=== PATIENT | female | born 1950 | race African-American/Black ===

== ENCOUNTER 2019-12-06 00:02 | Emergency (ER) | payer MEDICARE ==
[2019-12-06] MEDS ORDERED: Morphine 4 MG/ML VIAL ONE ×2 (00:28→02:25)
[2019-12-06] MEDS ORDERED: diphenhydrAMINE 50 MG/ML VIAL ONE (00:28)
[2019-12-06 00:42] LABS: #Basophils 0.2 thou/uL (0.0-0.2); #Eosinphils 0.1 thou/uL (0.0-0.7); #Lymphocytes 3.9 thou/uL (1.20-3.40); #Monocytes 0.6 thou/uL (0.11-0.59); %Basophils 1.4 % (0.0-1.0); %Eosinophils 0.8 % (0.0-10.0); %Lymphocytes 28.4 % (21.0-51.0); %Monocytes 4.6 % (0.0-10.0); %Neutrophils 64.7 % (42.0-75.0); Mean Corpuscular HGB CONC 33.1 g/dL (32.0-36.0); Mean Corpuscular Hemoglobin 29.4 pg (27.0-31.0); Mean Corpuscular Volume 88.9 fL (78.0-98.0); Mean Platelet Volume 7.7 fL (7.4-10.4); Platelet Count 244 thou/uL (130-400); Red Blood Cell (RBC) Count 4.76 mill/uL (4.20-5.40); White Blood Cell (WBC) Count 13.8 thou/uL (4.8-10.8)
[2019-12-06 00:50] LABS: PTT 28.7 sec (22.9-36.1)
[2019-12-06 00:51] LABS: INR-International Normal Ratio 1.1; Prothrombin Time 13.9 sec (12.0-14.7)
[2019-12-06 01:06] LABS: ALT (SGPT) 16 U/L (8-55); AST (SGOT) 16 U/L (5-34); Albumin 4.1 g/dL (3.4-4.8); Alkaline Phosphatase 69 U/L (40-110); Anion Gap 15 mmol/L (10-20); BUN (Urea Nitrogen) 11 mg/dL (9.8-20.1); Bilirubin, Total Less than 0.2 mg/dL (0.2-1.2); CK (CPK) 141 U/L (29-168); Calc. Creatinine Clearance 0 mL/min (70-130); Calcium 8.8 mg/dL (7.8-10.44); Carbon Dioxide 22 mmol/L (23-31); Chloride 106 mmol/L (98-107); Estimated GFR-MDRD 76; Globulin 2.9 g/dL (2.4-3.5); Glucose 165 mg/dL (80-115); Potassium 3.3 mmol/L (3.5-5.1); Sodium 140 mmol/L (136-145)
[2019-12-06] MEDS ORDERED: Adacel (T-DAP) 0.5 ML SYRINGE ONE (01:14)
[2019-12-06 01:36] LABS: Bacteria/HPF 3+ HPF (None Seen); Bilirubin Negative (Negative); Blood, Urine Trace (Negative); Clarity Clear (Clear); Glucose, Urine (Dipstick) Normal (Negative); Leukocyte Negative Leu/uL (Negative); Nitrite Negative (Negative); Protein, Urine (Dipstick) 20 mg/dL (Neg-Trace); RBC/HPF 0-3 HPF (0-3); Squamous Epithelial 0-3 HPF (0-3); Urobilinogen Normal mg/dL (Less than 2); WBC/HPF 0-3 HPF (0-3)
--- NOTE | 2019-12-08 10:18 | EKG ---
Test Reason : Blood Pressure : / mmHG Vent. Rate : 117 BPM Atrial Rate : 117 BPM P-R Int : 178 ms QRS Dur : 072 ms QT Int : 282 ms P-R-T Axes : 062 003 075 degrees QTc Int : 393 ms Sinus tachycardia Possible Left atrial enlargement Borderline ECG Confirmed by MERI ADAMES ([id number]), editor sound IAN ZABALA ([id number]) on 12/08/2019 10:17:50 AM Referred By: Confirmed By:MERI ADAMES
== END 2019-12-06 03:00 | disposition home or self-care (01) ==
LOC: ERS 00:02
DX: T63.061A Toxic effect of venom of other North and South American snake, accidental (unintentional), initial encounter (principal); E11.9 Type 2 diabetes mellitus without complications; Z23 Encounter for immunization; Z79.899 Other long term (current) drug therapy
CPT/HCPCS: 36415; 80053; 81003; 81015; 82550; 85025; 85384; 85610; 85730; 86850; 86900; 86901; 90471; 90715; 93005; 96361; 96374; 96375; 96376; J1200; J2270